=== PATIENT | female | born 1975 | race Caucasian/White ===

== ENCOUNTER 2024-01-09 11:41 | Emergency (ER) | payer MEDICAID ==
[~2024-01-09] VITALS: Ht 165.1 cm; Wt 89.0 kg
[2024-01-09 12:09] LABS: BILIRUBIN,URINE NEGATIVE (Neg); CLARITY,URINE CLEAR (Clear); COLOR,URINE YELLOW (Yellow); GLUCOSE, URINE NEGATIVE (Neg); KETONES,URINE NEGATIVE (Neg); LEUKOCYTE ESTERASE ,URINE NEGATIVE (Neg); NITRITES, URINE NEGATIVE (Neg); OCCULT BLOOD,URINE TRACE-INTACT (Neg); PH,URINE 6.5 (4.8-8.0); PROTEIN,URINE NEGATIVE (Neg); UROBILINOGEN,URINE 0.2 E.U/dL (0.2-1.0)
[2024-01-09 12:14] LABS: UA COLLECTION TYPE CLN CATCH MIDSTREAM
[2024-01-09 12:15] LABS: SQUAMOUS EPITHELIAL CELL,UR MODERATE /LPF (FEW)
[2024-01-09 12:16] LABS: BACTERIA,URINE FEW /HPF (Neg); WBC,URINE 0-4 /HPF (0-4)
[2024-01-09 12:19] LABS: URINE AMPHETAMINE SCREEN NEGATIVE (Neg); URINE BARBITUATE SCREEN NEGATIVE (Neg); URINE BENZODIAZEPINES SCREEN NEGATIVE (Neg); URINE CANNABINOID SCREEN NEGATIVE (Neg); URINE COCAINE SCREEN NEGATIVE (Neg); URINE METHADONE SCREEN NEGATIVE (Neg); URINE OPIATE SCREEN NEGATIVE (Neg); URINE PHENCYCLIDINE SCREEN NEGATIVE (Neg)
[2024-01-09 12:38] LABS: BASOPHILS % (AUTO) 0.7 % (0-1); EOSINOPHILS % (AUTO) 0.1 % (0-6); HEMATOCRIT 41.9 % (35.0-45.0); HEMOGLOBIN 14.1 g/dl (12.0-16.0); LYMPHOCYTES # (AUTO) 1.1 X10'3 (1.1-4.8); LYMPHOCYTES % (AUTO) 20.5 % (21-51); MEAN CORPUSCULAR HEMOGLOBIN 34.3 PG (27.0-31.0); MEAN CORPUSCULAR HGB CONC 33.7 g/dL (33.0-36.5); MEAN CORPUSCULAR VOLUME 101.6 FL (78-98); MEAN PLATELET VOLUME 7.8 FL (7.4-10.4); MONOCYTES # (AUTO) 0.4 X10'3 (0-0.9); MONOCYTES % (AUTO) 7.1 % (2-12); NEUTROPHILS % (AUTO) 71.6 % (42-75); PLATELET COUNT 234 X10'3 (140-440); RED BLOOD COUNT 4.13 X10'6 (4.20-5.60); RED CELL DISTRIBUTION WIDTH 13.9 % (11.5-14.5); WHITE BLOOD COUNT 5.5 X10'3 (4.5-11.0)
[2024-01-09 12:50] LABS: ANION GAP 8 (8-16); BLOOD UREA NITROGEN 7 MG/DL (7-18); BUN/CREATININE RATIO 10.6 (10.0-20.0); CALCIUM 8.7 MG/DL (8.5-10.1); CHLORIDE 98 MMOL/L (99-107); CREATININE 0.66 MG/DL (0.40-0.90); GLUCOSE 112 MG/DL (70-104); POTASSIUM 3.6 MMOL/L (3.5-5.1); SODIUM 135 MMOL/L (135-145); TOTAL CARBON DIOXIDE 28.7 MMOL/L (24-32); eCRCL 92 ML/MIN; eGFR > 90 ML/MIN
[2024-01-09 12:53] LABS: ETHANOL < 10 MG/DL (<10)
[2024-01-09] MEDS: LORazepam 1 MG tablet PO ONE (13:47)
[2024-01-09 14:31] LABS: THYROID STIMULATING HORMONE 1.72 ulU/ml (0.34-4.50)
[2024-01-09] MEDS ORDERED: CARB200T PO (14:47)
[2024-01-09] MEDS ORDERED: BENZ1TAB97 PO (14:47)
[2024-01-09] MEDS ORDERED: PROP10TA10 PO (14:47)
[2024-01-09] MEDS ORDERED: PARO20TA6 PO (14:47)
[2024-01-09] MEDS ORDERED: LORA-269 PO (14:47)
[2024-01-09] MEDS ORDERED: TRAZ-256 PO (14:47)
[2024-01-09 15:04] LABS: URINE HCG NEGATIVE (NEG)
[2024-01-09 15:07] LABS: BILIRUBIN,URINE NEGATIVE (Neg); CLARITY,URINE CLEAR (Clear); COLOR,URINE YELLOW (Yellow); GLUCOSE, URINE NEGATIVE (Neg); KETONES,URINE NEGATIVE (Neg); LEUKOCYTE ESTERASE ,URINE NEGATIVE (Neg); NITRITES, URINE NEGATIVE (Neg); OCCULT BLOOD,URINE NEGATIVE (Neg); PROTEIN,URINE NEGATIVE (Neg); UROBILINOGEN,URINE 0.2 E.U/dL (0.2-1.0)
[2024-01-09 15:08] LABS: UA COLLECTION TYPE CLN CATCH MIDSTREAM
[2024-01-09] MEDS ORDERED: traZODone 50mg tablet PO PRN (15:55)
[2024-01-09] MEDS ORDERED: LORazepam 1 MG tablet PO PRN (15:55)
[2024-01-09] MEDS: acetaminophen 325mg tablet PO PRN (16:03)
[2024-01-09] MEDS: aripiprazole 400mg suspension ER syringe IM ONE (16:43)
[2024-01-09 17:37] VITALS: BP 133/68; PULSE 93; RESP 18; TEMP 98.2; O2SAT 91
[2024-01-09] MEDS ORDERED: benztropine 1mg tablet PO SCH (20:00)
[2024-01-09] MEDS ORDERED: propranolol 10mg tablet PO SCH (20:00)
[2024-01-10] MEDS ORDERED: carBAMazepine 100mg chewable tablet PO SCH (08:00)
[2024-01-10] MEDS ORDERED: PARoxetine 20mg tablet PO SCH (08:00)
== END 2024-01-09 17:35 | disposition home or self-care (01) ==
LOC: ER 11:42
DX: F41.9 Anxiety disorder, unspecified (principal); Z20.822 Contact with and (suspected) exposure to COVID-19; F99 Mental disorder, not otherwise specified; F22 Delusional disorders; Z79.899 Other long term (current) drug therapy
CPT/HCPCS: 36415; 80048; 80305; 80320; 81001; 81003; 81025; 84443; 85025; 87811; 96372; 99284